=== PATIENT | male | born 1980 | race Caucasian/White ===

== ENCOUNTER 2019-09-25 11:13 | Emergency (ER) | payer SELFPAY ==
[~2019-09-25] VITALS: Ht 182.9 cm; Wt 88.1 kg
[2019-09-25 11:15] VITALS: BP 131/83
== END 2019-09-25 12:17 | disposition home or self-care (01) ==
LOC: ED 12:05
DX: S62.367A Nondisplaced fracture of neck of fifth metacarpal bone, left hand, initial encounter for closed fracture (principal); W01.0XXA Fall on same level from slipping, tripping and stumbling without subsequent striking against object, initial encounter; Y93.89 Activity, other specified; Y92.009 Unspecified place in unspecified non-institutional (private) residence as the place of occurrence of the external cause; Y99.8 Other external cause status
CPT/HCPCS: 29125; 99283